=== PATIENT | male | born 1930 | race Caucasian/White ===

== ENCOUNTER 2021-10-23 14:21 | Emergency (ER) | payer MEDICARE, BC ==
[~2021-10-23] VITALS: Ht 170.2 cm; Wt 93.4 kg
[2021-10-23 16:39] VITALS: BP 134/85
== END 2021-10-23 16:40 | disposition home or self-care (01) ==
LOC: ER 14:27
DX: S51.011A Laceration without foreign body of right elbow, initial encounter (principal); S61.214A Laceration without foreign body of right ring finger without damage to nail, initial encounter; S61.216A Laceration without foreign body of right little finger without damage to nail, initial encounter; S51.811A Laceration without foreign body of right forearm, initial encounter; S30.0XXA Contusion of lower back and pelvis, initial encounter; R10.13 Epigastric pain; I48.91 Unspecified atrial fibrillation; W19.XXXA Unspecified fall, initial encounter; Y93.89 Activity, other specified; Y92.89 Other specified places as the place of occurrence of the external cause; Y99.8 Other external cause status
CPT/HCPCS: 73080; 73130; 74176; 99284; A6403